=== PATIENT | male | born 1960 | race Native Hawaiian/Other Pacific Islander ===

== ENCOUNTER 2018-10-30 07:28 | Day surgery (SDC) | payer BC ==
[~2018-10-30] VITALS: Ht 30.5 cm; Wt 0.5 kg
[2018-10-30 08:23] LABS: PLATELET COUNT 177 K/uL (142-355)
[2018-10-30 08:28] LABS: POTASSIUM 3.8 mmol/L (3.6-5.2)
== END 2018-10-30 12:00 | disposition home or self-care (01) ==
LOC: OR 07:28
PROVIDERS: Internal Medicine
PROC: 0DJD8ZZ Inspection of Lower Intestinal Tract, Via Natural or Artificial Opening Endoscopic (ICD-10-PCS; principal; 2018-10-30)
DX: Z12.11 Encounter for screening for malignant neoplasm of colon (principal); K57.30 Diverticulosis of large intestine without perforation or abscess without bleeding; K64.4 Residual hemorrhoidal skin tags
CPT/HCPCS: 80053; 84403; 85027; J2001; J2250; J2405; J2704

== ENCOUNTER 2021-08-02 11:51 | Outpatient (CLI) | payer BC | END 2021-08-02 18:53 | disposition home or self-care (01) | LOC: RAD 11:51 | PROVIDERS: ATTEND Internal Medicine | DX: M79.642 Pain in left hand (principal); M79.645 Pain in left finger(s) ==

== ENCOUNTER 2022-02-07 10:35 | Outpatient (CLI) | payer BC | END 2022-02-07 23:24 | disposition home or self-care (01) | LOC: RAD 10:35 | PROVIDERS: ATTEND Nurse Practitioner Family | DX: Z01.818 Encounter for other preprocedural examination (principal) ==

== ENCOUNTER 2022-02-21 08:11 | Outpatient (CLI) | payer BC | END 2022-02-21 19:29 | disposition home or self-care (01) | LOC: NM 08:11 | PROVIDERS: ATTEND Family Medicine | DX: R94.31 Abnormal electrocardiogram [ECG] [EKG] (principal) | CPT/HCPCS: A9500 ==

== ENCOUNTER 2022-10-29 17:03 | Outpatient (CLI) | payer BC | END 2022-10-29 18:50 | disposition home or self-care (01) | LOC: LABW 17:03 | PROVIDERS: ATTEND Nurse Practitioner Family | DX: Z01.818 Encounter for other preprocedural examination (principal) | CPT/HCPCS: 93005 ==